=== PATIENT | female | born 1960 | race Hispanic/Latino ===

== ENCOUNTER 2024-03-14 09:16 | Emergency (ER) | payer BC ==
[~2024-03-14] VITALS: Ht 160 cm; Wt 69.4 kg
[~2024-03-14 09:16] MED LIST: AEC81 PO; ALEN70TA80 PO; CEFT2VIA12 IVPB; EMPA25TA PO; FAMO20TA8 PO; GABA300S3 PO; GLIP10TA9 PO; INSU100I3 SQ; INSU200I4 SQ; LAMO100T56 PO; LISI2.5T13 PO; PIOG30TA70 PO; ROSU40 PO; SEMA14TA2 PO; VENL-191 PO
[2024-03-14 09:19] VITALS: BP 153/73
[2024-03-14] MEDS: DiphenhydrAMINE HCL 50 MG/ML VIAL IV ONE (09:37)
[2024-03-14] MEDS: PROCHLORPERAZINE 10MG/2ML INJ IV ONE (09:37)
[2024-03-14] MEDS: ACETAMINOPHEN 325 MG TAB PO ONE (09:38)
[2024-03-14] MEDS: LACTATED RINGERS 1000ML 1,000 ML IV ONE (09:39)
[2024-03-14 10:26] LABS: ADD UA MICROSCOPIC YES; APPEARANCE,URINE CLEAR (CLEAR); BILIRUBIN,URINE NEGATIVE (NEGATIVE); COLOR,URINE YELLOW (YELLOW); GLUCOSE, URINE (UA) 250 mg/dL (NEGATIVE); KETONES,URINE 15 mg/dL (NEGATIVE); LEUKOCYTE ESTERASE ,URINE SMALL Leu/uL (NEGATIVE); NITRATE,URINE NEGATIVE (NEGATIVE); OCCULT BLOOD,URINE NEGATIVE (NEGATIVE); PH,URINE 6.5 (5.0-8.0); PROTEIN,URINE 30 mg/dL (NEGATIVE)
[2024-03-14 10:27] LABS: BACTERIA,URINE Rare /HPF (None Seen); RBC,URINE 0-1 /HPF (0-1); SQUAMOUS EPITHELIAL CELL,UR Rare /HPF (0-2); WBC,URINE 0-1 /HPF (0-1)
[2024-03-14 10:35] LABS: SARS-CoV-2, RNA, NAAT NEGATIVE SARS CoV-2 (NEGATIVE)
[2024-03-14 10:36] VITALS: PULSE 89; RESP 18; O2SAT 97
[2024-03-14 10:42] LABS: BASOPHILS # (AUTO) 0.02 K/uL (0.00-0.20); BASOPHILS % (AUTO) 0.4 % (0.0-5.0); HEMATOCRIT 34.5 % (36-48); IMMATURE GRANULOCYTE ABSOLUTE 0.02 K/uL (0-1); LYMPHOCYTES # (AUTO) 0.9 K/uL (1.0-4.8); LYMPHOCYTES % (AUTO) 16.3 % (21.0-51.0); MEAN CORPUSCULAR HEMOGLOBIN 31.4 pg (27.0-33.0); MEAN CORPUSCULAR HGB CONC 33.3 g/dL (32.0-36.0); MEAN CORPUSCULAR VOLUME 94.3 fL (79-99); MONOCYTES # (AUTO) 0.2 K/uL (0.1-1.0); MONOCYTES % (AUTO) 4.6 % (3.0-13.0); NEUTROPHILS # (AUTO) 4.1 K/uL (1.8-7.7); NEUTROPHILS % (AUTO) 78.3 % (40.0-77.0); PLATELET COUNT (AUTO) 277 K/uL (130-400); RED BLOOD CELL COUNT(AUTO) 3.66 MIL/uL (4.00-5.50); RED CELL DISTRIBUTION WIDTH 13.9 % (11.0-15.5); WHITE BLOOD COUNT (AUTO) 5.3 K/uL (4.8-10.8)
[2024-03-14 10:54] LABS: CREATININE 0.9 mg/dL (0.5-1.0)
[2024-03-14] MEDS ORDERED: DICL20GE TP (11:09)
[2024-03-14 11:20] LABS: INFLUENZA TYPE A Negative For Type A (NEGATIVE); INFLUENZA TYPE B Negative For Type B (NEGATIVE)
== END 2024-03-14 11:17 | disposition home or self-care (01) ==
LOC: EDH 09:16
DX: G44.209 Tension-type headache, unspecified, not intractable (principal); F41.9 Anxiety disorder, unspecified; E78.00 Pure hypercholesterolemia, unspecified; E11.9 Type 2 diabetes mellitus without complications; F31.9 Bipolar disorder, unspecified; Z79.4 Long term (current) use of insulin; Z79.82 Long term (current) use of aspirin; Z79.84 Long term (current) use of oral hypoglycemic drugs; Z79.899 Other long term (current) drug therapy; Z90.49 Acquired absence of other specified parts of digestive tract; Z20.822 Contact with and (suspected) exposure to COVID-19
CPT/HCPCS: 99284; 96374; 87635; 96361; 96375; 82550; 80048; 85025; 87804 ×2; 82948; 81001; 36415; 93005; J7120; J1200; J0780